=== PATIENT | male | born 1990 | race Caucasian/White ===

== ENCOUNTER 2017-01-11 10:51 | Emergency (ER) | payer OTHER ==
[~2017-01-11] VITALS: Ht 182.9 cm; Wt 81.6 kg
[2017-01-11] MEDS ORDERED: IBUP600T26 PO (11:09)
[2017-01-11] MEDS ORDERED: BENA25TA9 PO (11:09)
[2017-01-11] MEDS ORDERED: TUMS500C PO (11:09)
[2017-01-11] MEDS ORDERED: VARE1TA PO (11:09)
[2017-01-11] MEDS ORDERED: ONDANSETRON 4MG/2ML VIAL (J2405) IV ONE (11:45)
[2017-01-11] MEDS ORDERED: KETOROLAC 30 MG/ML VIAL (J1885) IV ONE (11:45)
[2017-01-11] MEDS ORDERED: NS 1,000 ML IV ONE (11:45)
[2017-01-11 12:24] LABS: BASO % 0.6 % (0.0-1.0); EOS # 0.1 K/mm3 (0.0-0.50); EOS % 1.7 % (0.0-3.0); LARGE UNSTAINED CELL # 0.1 K/mm3 (0.0-0.4); LARGE UNSTAINED CELL % 1.5 % (0.0-4.0); LYMPH # 2.2 K/mm3 (1.5-6.5); LYMPH % 31.1 % (24.0-44.0); MEAN CORPUSCULAR VOLUME 94.3 fl (80.0-96.0); MONO # 0.3 K/mm3 (0.0-0.8); PLATELET COUNT, AUTOMATED 246 k/mm3 (150-450); RED CELL DISTRIBUTION WIDTH 12.4 % (11.5-14.5); WHITE BLOOD COUNT 6.6 K/mm3 (4.0-10.0)
[2017-01-11 12:44] LABS: ALBUMIN/GLOBULIN RATIO 1.14 (1.00-1.93); ALKALINE PHOSPHATASE 73 U/L (45-117); ALT/SGPT 32 U/L (12-78); AMYLASE 41 U/L (25-115); ANION GAP 4 MEQ/L (8-16); AST/SGOT 15 U/L (15-37); BILIRUBIN,DIRECT < 0.1 MG/DL (0.0-0.2); BILIRUBIN,TOTAL 0.3 MG/DL (0.2-1.0); BLOOD UREA NITROGEN 18 MG/DL (7-18); CALCIUM LEVEL 9.2 MG/DL (8.5-10.1); CARBON DIOXIDE LEVEL 29 MEQ/L (21-32); CHLORIDE LEVEL 107 MEQ/L (98-107); CREATININE FOR GFR 1.13 MG/DL (0.70-1.30); GLOMERULAR FILTRATION RATE > 60.0 (>60); GLUCOSE, FASTING 95 MG/DL (70-105); POTASSIUM SERUM 3.9 MEQ/L (3.5-5.1); SODIUM LEVEL 140 MEQ/L (136-145); TOTAL PROTEIN 7.5 GM/DL (6.4-8.2)
[2017-01-11 13:35] VITALS: BP 118/71
[2017-01-11] MEDS ORDERED: ZOFR4TAB3 PO (13:36)
--- NOTE | 2017-01-11 13:36 | REP ---
CT study of the abdomen and pelvis without contrast: History: Hematuria. Renal stone protocol. Right-sided renal colic. No comparison studies. Findings: Preliminary digital frozen pie maker radiograph shows a normal bowel gas pattern. The lung bases show plate-like atelectasis in the lingular segment of the left upper lobe and to a lesser extent in the lower lobes bilaterally. The lung bases are otherwise clear. There is no evidence of pleural effusion. The liver and the spleen are normal in size, homogeneous in texture. The gallbladder is unremarkable. No pancreatic abnormality is observed. There is a tiny accessory splenule near the tail of the pancreas. No adrenal lesion is seen. The kidneys show no evidence of intrarenal calculus or hydronephrosis. No mass lesion is seen. No ureteral or bladder calculus is observed. Prostate and seminal vesicles are unremarkable. No retroperitoneal mass or adenopathy is seen. The appendix is not directly visualized but there is no CT evidence to suggest appendicitis or other inflammatory lesion. No bony destructive lesion is seen. No abdominal wall defect is observed. Impression: No urinary tract calculus or hydronephrosis seen. No acute abdominal abnormality. Signed by Faustino Rios MD 01/11/2017 02:53 P
== END 2017-01-11 13:46 | disposition home or self-care (01) ==
LOC: M ED 11:53
DX: A08.4 Viral intestinal infection, unspecified (principal); R11.2 Nausea with vomiting, unspecified; Z87.891 Personal history of nicotine dependence; Z79.899 Other long term (current) drug therapy
CPT/HCPCS: 74176; 80048; 80076; 81001; 82150; 83690; 85025; 96374; 96375; 99283; J1885; J2405

== ENCOUNTER 2018-07-06 17:30 | Emergency (ER) | payer OTHER ==
[2018-07-06 18:51] LABS: INFLUENZA A AMPLIFICATION NEGATIVE (NEGATIVE); INFLUENZA B AMPLIFICATION NEGATIVE (NEGATIVE)
== END 2018-07-06 20:38 | disposition home or self-care (01) ==
LOC: M ED 17:30
DX: B34.9 Viral infection, unspecified (principal); F17.210 Nicotine dependence, cigarettes, uncomplicated
CPT/HCPCS: 71046